=== PATIENT | female | born 1980 | race Caucasian/White ===

== ENCOUNTER 2016-08-21 23:30 | Observation (INO) | payer MEDICARE, MEDICAID ==
[~2016-08-21] VITALS: Ht 176.5 cm; Wt 127.6 kg
[2016-08-21 23:34] VITALS: BP 160/88; PULSE 72; RESP 18; O2SAT 99
[2016-08-21 23:58] LABS: BASOPHILS % (AUTO) 0.4 % (0-3); EOSINOPHILS % (AUTO) 1.7 % (0-5); MONOCYTES % (AUTO) 5.9 % (4-12); Mean Corpuscular Hemoglobin 25.8 pg (27.0-35.0); Mean Corpuscular Volume 81.1 fL (81-100); NEUTROPHILS % (AUTO) 74.7 % (40-74); Platelet Count 298 bil/L (150-400)
[2016-08-22] VITALS (12 sets, daily range): BP systolic 103–139; BP diastolic 66–91; PULSE 74–92; RESP 15–24; O2SAT 94–99
[2016-08-22 00:18] LABS: Magnesium 2.1 mg/dL (1.6-2.6)
--- NOTE | 2016-08-22 01:20 | ED.REPORT ---
HPI-Abd Pain F Under 38 Date of Service Aug 22, 2016 ED Provider: Dr. Dhruv Riley D.O. A healthy 36 year old female presents to the ED with right-sided abdominal pain onset 2100 this evening. She also reports right-sided back pain, chills, nausea , and vomiting. The patient denies diarrhea or hematuria. She has had two previous episodes of similar pain, although less severe. Six weeks ago the patient had a negative gallbladder scan. Nursing Notes Stated Complaint: ABDOMINAL PAIN Chief Complaint: Female Abdominal Pain Nursing Notes Reviewed: Yes Allergies: Coded Allergies: No Known Allergies (Unverified , 08/21/16) Scheduled Dextroamphetamine/Amphetamine ER (Adderall XR) 20 Mg Capsule 20 MG PO DAILY Fluoxetine (Fluoxetine) 40 Mg Capsule 40 MG PO DAILY Metformin (Metformin) 500 Mg Tablet 500 MG PO DAILY Miscellaneous Medications ([ control]) General Time Seen by MD: 01:20 Chief Complaint Abdominal pain Hx Obtained From: Patient Arrived By: Walk-in Sudden in Onset?: No Onset Occurred: 5 - 8 hours ago Symptom Duration: Since onset Location: : Back (Right): RUQ Quality: Painful Severity: Current: Moderate Severity: Maximum: Moderate Associated with: Reports: Diarrhea, Nausea, Vomiting, Denies: Fever Pertinent Negative: Relieved by nothing Recent Healthcare: Recent doctor visit Similar Sx Previous: Yes Past Medical History Past Medical History None reported Past Surgical History None reported Smoking History Unknown if Ever Smoker Social History Other Social History: Good social support Ambulatory Status Independent Review of Systems Constitutional: Reports: Chills GI: Reports: Abdominal pain (Right-sided), Nausea, Vomiting, Denies: Diarrhea Female: Denies: Hematuria Musculoskeletal: Reports: Back pain (Right-sided) Complete sys rev & neg: except as marked. Physical Exam Initial Vital Signs Vital Signs (First) Date Time Temp Pulse Resp B/P Pulse Ox O2 Delivery O2 Flow Rate FiO2 08/21/16 23:34 36.0 72 18 160/88 99 Room Air Initial VS: Reviewed Head / Eyes: Atraumatic, Normocephalic ENT: Conjunctiva normal, No scleral icterus Skin: Warm, Dry, No cyanosis Neurologic: Alert, Oriented, Nonfocal Psychiatric: Mood/affect normal, Behavior normal, Normal thought content General/Constitutional: Awake, Alert Distress / Hydration: Positive: Distress moderate Behavior: Positive: Hyperventilating Respiratory / Chest: Breath sounds NL, Breath sounds = bilat, No respiratory distress Cardiovascular: Heart rate NL, Regular rhythm, Heart sounds NL Abdomen: Soft Tenderness/Guarding/Rebound: Positive: Tender RUQ... Interpretation & Diagnostics Lab Results Interpretation Result Diagram: 08/21/16 2347 08/21/16 2347 Test 08/21/16 23:47 08/22/16 02:30 White Blood Count 13.5th/mm3 (3.8-10.1) Red Blood Count 4.65mil/mm3 (3.90-5.20) Hemoglobin 12.0g/dL (12.0-15.6) Hematocrit 37.7% (35.0-46.0) Mean Corpuscular Volume 81.1fL (81-100) Mean Corpuscular Hemoglobin 25.8pg (27.0-35.0) Mean Corpuscular Hemoglobin Concent 31.8% (32.0-37.0) Red Cell Distribution Width 14.8% (12.3-15.4) Platelet Count 298bil/L (150-400) Neutrophils (%) (Auto) 74.7% (40-74) Lymphocytes (%) (Auto) 17.1% (14-46) Monocytes (%) (Auto) 5.9% (4-12) Eosinophils (%) (Auto) 1.7% (0-5) Basophils (%) (Auto) 0.4% (0-3) Sodium Level 139mEq/L (134-144) Potassium Level 4.3mEq/L (3.5-5.2) Chloride Level 102mEq/L (97-108) Carbon Dioxide Level 24mmol/L (18-29) Blood Urea Nitrogen 15mg/dL (6-20) Creatinine 0.86mg/dL (0.57-1.00) Estimat Glomerular Filtration Rate 106mL/min (>59) Glucose Level 113mg/dL (60-99) Calcium Level 9.1mg/dL (8.5-10.1) Magnesium Level 2.1mg/dL (1.6-2.6) Total Bilirubin 0.3mg/dL (0.0-1.2) Aspartate Amino Transf (AST/SGOT) 14U/L (0-50) Alanine Aminotransferase (ALT/SGPT) 8U/L (0-32) Alkaline Phosphatase 67U/L (25-150) Total Protein 7.2g/dL (6.4-8.4) Albumin 3.8g/dL (3.4-5.0) Lipase 31U/L (13-60) HCG Beta Subunit < 0.500mIU/mL Hold Elam Top Tube Received (Received) Urine Color Yellow (YELLOW) Urine Appearance Hazy (CLEAR,HAZY) Urine pH 7.0 (5.0-8.0) Urine Specific [place] 1.020 (1.003-1.035) Urine Protein Negativemg/dL (NEG,TRACE) Urine Glucose (UA) Negativemg/dL (NEGATIVE) Urine Ketones Negativemg/dL (NEGATIVE) Urine Occult Blood Moderate (NEGATIVE) Urine Nitrite Negative (NEGATIVE) Urine Bilirubin Negative (NEGATIVE) Urine Urobilinogen Normalmg/dL (NORMAL) Urine Leukocyte Esterase Trace (NEGATIVE) Urine RBC 3-10/hpf (0-2) Urine WBC 11-50/hpf (0-5) Urine Epithelial Cells Moderate/hpf (NONE-MOD) Urine Crystals None seen (NONE SEEN) Urine Bacteria Moderate/hpf (NONE-FEW) Urine Hyaline Casts None/lpf (NONE) Urine Granular Casts None seen (NONE SEEN) Urine Waxy Casts None seen (NONE SEEN) Urine Red Blood Cell Casts None seen (NONE SEEN) Urine White Blood Cell Casts None seen (NONE SEEN) Urine Mucus Present (None Seen) Urine Trichomonas None seen (NONE SEEN) Urine Yeast None (NONE SEEN) Urinalysis Comment Transitional epi Urine Culture Reflexed Indicated ECG Interpretation ECG Interpretation: Sinus rhythm rate 71 Time: 23:44 Interpreted by: ED physician CT Abd / Pelvis Interpretation CONCLUSION: Mild uncomplicated diverticulitis could be present as described above. Fibroid uterus suggested an adnexal cyst/cysts as described, ultrasound could further evaluate. Cholelithiasis is noted. Ultrasound could further evaluate. Transmitted to ED by Jerome Boyce D.O. at 08/22/2016 - 3:07:10 AM [facility] Study type: Abdominal CT IV contrast Interpretation / Wet Read by: Interpret - Radiologist Re-Eval/Medical Decision Med Decision/Clinical Course Maria Del Rosario may be developing diverticulitis or early acute cholecystitis. Either way she needs to be admitted for IV antibiotics and IV fluids and IV pain control. She probably needs an ultrasound however were going to treat her empirically with antibiotics and I think the ultrasound can wait until the morning. I consulted with our hospitalist who graciously agreed to admit tonight and procure the remainder of the diagnostics and obtain surgical consultation if indicated. Re-Evaluation/Progress : Time of Eval: 03:21 Patient Status: Condition improved Re-Evaluation/Progress Note: Discussed with patient CT and lab results, diagnosis, and plan for admit. Patient agrees with plan for care and all questions were addressed. Consultation : Referral / Consult Name: Gary Huertas MD Consulted With: Hospitalist Call Returned at: 03:38 Auto Damage Adjuster: Agrees with eval, Agrees with plan, Accepts admit Counseled Regarding: Diagnosis, Lab results, Need for admission Discharge & Departure Shift Change Sign-Out Response to Therapy: Improved Primary Impression: Diverticulitis Diverticulitis site: large intestine Diverticulitis bleeding: without bleeding Diverticulitis complication: without perforation or abscess Qualified Code: K57.32 - Diverticulitis of large intestine without perforation or abscess without bleeding Additional Impressions: Gallstones Abdominal pain Abdominal location: right upper quadrant Qualified Code: R10.11 - Right upper quadrant pain Leukocytosis Leukocytosis type: unspecified Qualified Code: D72.829 - Elevated white blood cell count, unspecified Disposition: ADMITTED TO HOSPITAL Discharge Condition All VS Reviewed: Yes Condition: Stable Referrals: Beverly Waters (PCP) Ivet Attestation Portions of this note were transcribed by Digna Matos. I, Dr. Riley, personally performed the history, physical exam, and medical decision-making; I reviewed and confirmed the accuracy of the information in the transcribed note. Signed by: Ivet Cohn, 08/22/2016, 03:45 copies to: Beverly Waters Todd P DO Aug 22, 2016 01:20 DIGNA MATOS Aug 22, 2016 01:44
[2016-08-22] MEDS ORDERED: Ondansetron 2 mg/mL 2 mL Inj IVPUSH PRN ×4 (01:45→16:05)
[2016-08-22] MEDS: HYDROmorphone 0.5 mg/0.5 mL iSecure Syringe IVPUSH PRN ×2 (02:43→03:48)
[2016-08-22] MEDS ORDERED: Piperacillin-Tazo 3.375 Gm Inj 3.375 GM in Dextrose 5% Minibag Plus 50 ML IV ONE (03:20)
[2016-08-22] MEDS ORDERED: Alum-Mag Hydrox-Simeth 30 mL Suspension PO PRN (03:40)
[2016-08-22] MEDS ORDERED: Polyethylene Glycol (PEG) 17 Gm Powder PO PRN (03:40)
[2016-08-22 03:52] LABS: APPEARANCE,URINE HAZY (CLEAR,HAZY); COLOR,URINE YELLOW (YELLOW); OCCULT BLOOD,URINE MODERATE (NEGATIVE)
[2016-08-22 03:53] LABS: UROBILINOGEN,URINE NORMAL (NORMAL)
[2016-08-22] MEDS: 0.9% Sodium Chloride 1,000 ML IV SCH ×3 (03:57→23:40)
[2016-08-22] MEDS ORDERED: HYDROmorphone 1 mg/mL Inj IVPUSH ONE (04:00)
--- NOTE | 2016-08-22 05:06 | PCM.HPMED ---
Subjective Date of Service Aug 22, 2016 Primary Provider: Admitting Physician: Primary Care Physician: Beverly Waters Attending Physician: Chief Complaint: Abdominal pain History of Present Illness: Maria Del Rosario Kemp is a 36 year old female with no known medical problems who presents to [facility] emergency department with right-sided abdominal pain at 2100 this evening. She also reports right-sided back pain, severe, sharp pain 9/10 intensity, radiation from the right side to mid epigastric area. Associated symptoms includes chills, nausea, and multiple vomiting (no hematemesis). The patient denies diarrhea or hematuria. The patient has had two previous episodes of similar pain, although less severe. Patient had a negative HIDA scan on 07/03/16. Family reported the patient had similar mild symptoms around this time but nothing was found to be the cause. No prior abdominal surgery and no history of obstructions Case discussed with Dr Riley, plan to admit and initiate antibiotics. Review of Systems: Pertinent positives as noted in HPI. All other systems were reviewed and are negative Allergies Coded Allergies: No Known Allergies (Unverified , 08/21/16) Home Medications Not yet consolidated PMH Asperger Polycystic Ovarian Syndrome on Metformin Obesity Surgical History Tonsillectomy Family History Both parents healthy Mother side has issues with diverticulosis Social History Hx Alcohol Use: No Hx Substance Use: No Hx Tobacco Use: No Living Arrangement: with Family Exam Vital Signs Vital Sign - Last Date Time Temp Pulse Resp B/P Pulse Ox O2 Delivery O2 Flow Rate FiO2 08/22/16 02:56 36.5 88 118/76 99 08/21/16 23:34 18 Room Air Exam General: Alert, Oriented X3, Cooperative, No acute Distress Eyes: PERRLA, Scleral Anicteric Mouth: Mouth Normal, Mucous Membranes Moist/[place] Neck: Supple, no Thyromegaly, trachea central. Chest & Lungs: Clear to auscultation & percussion, No adventitious breath sounds, no crackles, no wheeze Cardiovascular: Normal S1, Normal S2, No Murmurs/Rubs/Gallops, Regular Rate/ Rhythm, (No JVD, no peripheral edema) Pulses: Radial (present and equal), Dorsalis Pedi (present and equal) Abdomen: Soft, right upper quadrant tenderness, Non-distended, Normoactive bowel tones. Musculoskeletal: Unremarkable. Normal range of motion, no swollen or erythematous joints Extremities: No edema, no cyanosis, no clubbing. Skin: No rashes. Warm and dry, no erythematous areas Neurological: Grossly neurologically intact, Normal Speech, Sensation Intact Lymphatic: Lymph nodes Cervical and Axillary not palpable. Lab and Diagnostics Labs Laboratory Tests Test 08/21/16 23:47 08/22/16 02:30 White Blood Count 13.5th/mm3 (3.8-10.1) Red Blood Count 4.65mil/mm3 (3.90-5.20) Hemoglobin 12.0g/dL (12.0-15.6) Hematocrit 37.7% (35.0-46.0) Mean Corpuscular Volume 81.1fL (81-100) Mean Corpuscular Hemoglobin 25.8pg (27.0-35.0) Mean Corpuscular Hemoglobin Concent 31.8% (32.0-37.0) Red Cell Distribution Width 14.8% (12.3-15.4) Platelet Count 298bil/L (150-400) Neutrophils (%) (Auto) 74.7% (40-74) Lymphocytes (%) (Auto) 17.1% (14-46) Monocytes (%) (Auto) 5.9% (4-12) Eosinophils (%) (Auto) 1.7% (0-5) Basophils (%) (Auto) 0.4% (0-3) Sodium Level 139mEq/L (134-144) Potassium Level 4.3mEq/L (3.5-5.2) Chloride Level 102mEq/L (97-108) Carbon Dioxide Level 24mmol/L (18-29) Blood Urea Nitrogen 15mg/dL (6-20) Creatinine 0.86mg/dL (0.57-1.00) Estimat Glomerular Filtration Rate 106mL/min (>59) Glucose Level 113mg/dL (60-99) Calcium Level 9.1mg/dL (8.5-10.1) Magnesium Level 2.1mg/dL (1.6-2.6) Total Bilirubin 0.3mg/dL (0.0-1.2) Aspartate Amino Transf (AST/SGOT) 14U/L (0-50) Alanine Aminotransferase (ALT/SGPT) 8U/L (0-32) Alkaline Phosphatase 67U/L (25-150) Total Protein 7.2g/dL (6.4-8.4) Albumin 3.8g/dL (3.4-5.0) Lipase 31U/L (13-60) HCG Beta Subunit < 0.500mIU/mL Hold Elam Top Tube Received (Received) Result Diagram: 08/21/167 08/21/162346 X-Rays, CTs and MRIs CT Abd / Pelvis Interpretation CONCLUSION: Mild uncomplicated diverticulitis could be present as described above. Fibroid uterus suggested an adnexal cyst/cysts as described, ultrasound could further evaluate. Cholelithiasis is noted. Ultrasound could further evaluate. Transmitted to ED by Jerome Boyce D.O. at 08/22/2016 - 3:07:10 AM PST Assessment & Plan Maria Del Rosario Kemp is a 36 year old female with no known medical problems who presents to [facility] emergency department with right-sided abdominal pain 1. Acute right sided Abdominal pain. Present on admission Differential diagnosis includes Cholelithiasis, Cholecystitis, Appendicitis, Budd Chiari syndrome, Pyelonephritis, Intestinal ischemia. CT scan has limited the diagnosis to Diverticulitis (which is rare for her age) and Cholelithiasis. Pyelonephritis is also a possible diagnosis based on flank pain with Urinary tract infection. Liver function test completely normal. Lipase is also normal with normal pancreas on imaging, basically rules out acute pancreatitis - empiric antibiotics with Zosyn IV - Blood cultures x 2, Urine culture - nothing by mouth with IV fluids running - ultrasound ordered, consider HIDA scan as next step - consider Surgical and or Gastroenterology consultation - also consider a gynecological evaluation if none of the diagnosis are ruled out 2. Leukocytosis. Present on admission Not meeting SIRS criteria but likely represents a infectious process. - monitor with repeat labs 3. Obesity BMI 39.5 will discuss weight lost and lifestyle modifications with dieting and exercise 4. Polycystic Ovarian syndrome - holding Metformin for now, due to recent contrast exposure - Acetaminophen as needed for mild pain/fever/headache - Bowel regimen as needed -Antiemetic as needed Patient admitted under inpatient status with expected length of stay > 2 midnights for severity of present symptoms, complexities of treatment plan and risk for adverse event . Resuscitation Status: CPR: Attempt Resuscitation Gary Huertas MD Aug 22, 2016 03:40
[2016-08-22] MEDS ORDERED: AMPH20CA5 PO (06:42)
[2016-08-22] MEDS ORDERED: birth control (06:42)
[2016-08-22] MEDS ORDERED: FLUO40CA PO (06:42)
[2016-08-22] MEDS ORDERED: METF500T4 PO (06:42)
[2016-08-22] MEDS: Piperacillin-Tazo 3.375 Gm Inj 3.375 GM in Dextrose 5% Minibag Plus 50 ML IV SCH ×3 (09:23→23:41)
--- NOTE | 2016-08-22 10:00 | NUR ---
Pain Pt had severe abdominal pain first thing this am, no pain meds ordered, contacted MD. received order for Toradol, administered, pt pain went down to 1/10 unless pressure placed on abdomen.
--- NOTE | 2016-08-22 10:12 | DRSVH ---
PROCEDURE: US ABDOMEN, LIMITED ([id number]) INDICATIONS: abd pain TECHNIQUE: Real-time focused scanning was performed of the abdomen, with image documentation. COMPARISON: [facility], CT, CT ABD PELVIS W CON, 08/22/2016, 2:41. FINDINGS: Limited exam demonstrates multiple gallstones as well as edematous and thickened gallbladde r wall measuring up to 7 mm. Small amount pericholecystic fluid. Positive sonographic Chopra sign. IMPRESSION: Cholelithiasis with thickened, edematous gallbladder wall suggesting developing cholecyst itis. Correlate clinically. Mary Griffin RN given results by the novelty candy maker at 0845 hrs. 08/22/2016. Dictated by: Anton ABRAMS Interpreted: Дмитрий Hernandez MD on 08/22/2016 at 10:09 Transcribed by: YANIRA on 08/22/2016 at 10:11 Approved by: Nathan Hernandez M.D. on 08/22/2016 at 14:14
--- NOTE | 2016-08-22 11:25 | DRSVH ---
PROCEDURE: CT ABDOMEN AND PELVIS WITH CONTRAST ([id number]) INDICATIONS: RUQ pain, -recent hidda scan, elevated wbc count TECHNIQUE: After the administration of intravenous contrast, 5 mm thick sections acquired from the diaphragm to the symphysis. 5 mm coronal and sagittal reformats were acquired. For radiation dose reduction, the following was used: automated exposure control, adjustment of mA and/or kV according to patient siz e. COMPARISON: [facility], US, PELVIS SONO TRANSVAGINAL ([facility]), 02/10/2013, 14:41. FINDINGS: Image quality: Excellent. ABDOMEN: Lung bases: Lung bases are clear. Heart size is normal. Solid organs: Liver and spleen are normal in size and enhancement. Gallbladder dependent layering p artially calcified gallstones are present within the gallbladder lumen. Biliary system is non dilate d. Pancreas enhances normally. No adrenal nodules. Kidneys demonstrate normal size and enhancement , without hydronephrosis. Peritoneum and bowel: Bowel loops demonstrate normal wall thickness and caliber. No free fluid or a ir. Nodes and vessels: No retroperitoneal or mesenteric adenopathy by size criteria. Aorta and inferior vena cava are normal in size. Miscellaneous: No ventral hernias. PELVIS: Genitourinary: Bladder wall thickness is normal. Right adnexal cyst measuring up to 3.2 x 2.9 x 3.0 cm. Prior evaluation of the uterus by ultrasound in January of 2013 had shown only 2 intramural fibroi ds measuring up to 1.3 cm in maximal dimension. The uterus is now enlarged, heterogeneous in its radha earance, and lobulated in its contour to the degree that most likely multiple fibroids have developed . Miscellaneous: No inguinal hernias or adenopathy. At the left lower quadrant diverticulosis is pres ent and there appears to be slight stranding in the adjacent pericolonic fat, but this may represent scarring from prior diverticulitis rather than new diverticulitis, and the clinical history provided indicates right upper quadrant rather than left lower quadrant pain as the presenting symptom. What appears to be a normal appendix can be seen at the right lower quadrant posterior to the cecum. Bones: No suspicious bony lesions. No vertebral body compression fractures. IMPRESSION: 1. The appearance of the uterus has significantly changed from 2012, now with heterogeneous enhancem ent, enlargement, and lobulated contours. Statistically this is most likely a manifestation of inter matt development of multiple moderately large fibroids but ultrasound assessment is recommended to fur ther assess this significant interval change. 2. Sigmoid and descending colonic diverticulosis but without definite acute diverticulitis. As note d, there is slight stranding in the adjacent pericolonic fat but the clinical history provided is of right upper quadrant pain rather than left lower quadrant pain. 3. Dependent layering partially calcified gallstones within the gallbladder lumen, but no sign of ac [place] inflammation involving the gallbladder or development of biliary distention. 4. There is a right adnexal cyst measuring up to 3.2 x 2.9 x 3.0 cm which can be further characteriz ed during anticipated pelvic ultrasound. Note: These findings are concordant with the preliminary interpretation. Dictated by: Nicanor Gibbnos M.D. on 08/22/2016 at 11:12 Approved by: Nicanor Gibbons M.D. on 08/22/2016 at 11:23
--- NOTE | 2016-08-22 12:21 | CONS ---
[address] [address] CONSULTATION REPORT PATIENT: ABHISHEK ARREDONDO : 1980 MR#: [id number] ADMIT: 08/22/2016 JOB ID: [id number] DATE OF SERVICE: 08/22/2016 CHIEF COMPLAINT: Cholecystitis. HISTORY OF PRESENT ILLNESS: The patient is a 36-year-old female, who was admitted overnight by the hospitalist service due to abdominal pain. I was consulted by the hospitalist today for evaluation. The patient reports that this is her third attack of this sort of pain. It is mainly in the right upper quadrant and radiates to her back. She had an attack in June of 2016 and she did see her PCP at [facility] and the patient had a normal HIDA scan. However, around 9 p.m. last night, she had another episode of this right upper quadrant pain that goes around to her back. She had nausea and vomiting many times and she had some chills and was hyperventilating. There is no diarrhea. This prompted a visit to the emergency department which ordered an abdominal CT scan and then this morning patient had an abdominal ultrasound. The abdominal ultrasound demonstrated a thickened gallbladder wall and cholelithiasis consistent with cholecystitis. It is interesting that a CT scan last night only showed calcified gallstones but no signs of cholecystitis. Patient's sister had cholecystectomy. PAST MEDICAL HISTORY: 1. Asperger syndrome. 2. Polycystic ovarian syndrome. 3. Tonsillectomy. MEDICATIONS: Are Adderall, fluoxetine, metformin. ALLERGIES: None. SOCIAL HISTORY: The patient lives in [place]. She is single. She does not have any children. She does not smoke. FAMILY HISTORY: Positive for cholecystectomy in her sister. REVIEW OF SYSTEMS: Positive for the right upper quadrant pain, nausea, vomiting and chills. All other systems reviewed are negative. PHYSICAL EXAMINATION: The patient is currently in the hospital bed in no acute distress. Her mother is in the room. Her BMI is 40.9. Head is normocephalic, atraumatic. There is no scleral icterus. Neck is supple. Heart is regular rate. Lungs are clear. Abdomen is slightly obese. It is soft on the left side but on palpation there is mild tenderness in the epigastric region and [id number] tenderness in the right subcostal region with deep inspiration. Extremities show no clubbing and no cyanosis. Neurologically, patient is awake and alert and answers appropriately. LABORATORY EXAMINATION: Last night showed a white blood count of 13.5, hematocrit 37.7, platelet count is 298. Sodium was 139, potassium 4.3, creatinine 0.86, total bilirubin 0.3, lipase of 31. ASSESSMENT: This is a 36-year-old female with acute cholecystitis. The patient's BMI is 40.9. The patient will be started on IV antibiotics and we will proceed to laparoscopic cholecystectomy, possible open, today. The risks of the operation were explained to the patient and her mother and they both understand and wish to proceed.
[2016-08-22 12:46] LABS: INR 0.9 ratio
--- NOTE | 2016-08-22 13:05 | NUR ---
Pain P: Patient had abdominal pain. 12/30 Intervention: Patient was given Toradol per primary RN Evaluation: Pain was relieved to 0/10
[2016-08-22] MEDS ORDERED: Lactated Ringer's 500 ML IV PRN (15:13)
[2016-08-22] MEDS ORDERED: Lactated Ringer's 1,000 ML IV SCH (15:13)
--- NOTE | 2016-08-22 15:13 | PCM.HPANE ---
Patient Data Surgeon Admitting Provider:Gary Huertas MD Attending Provider:Gary Huertas MD Primary Care Physician:Beverly Waters Other Provider: Reason for Visit Diverticulitis Gallstones Abdominal Pain Ht/WT & BMI Height (Feet): 5 Height (Inches): 9.50 Weight (Kilograms): 127.600 Body Mass Index 40.73 Allergies Coded Allergies: No Known Allergies (Unverified , 08/21/16) Medications Reported Medications [ control] No Conflict Check 08/22/16 Fluoxetine 40 Mg [id number] Mg PO DAILY Ref 2 08/22/16 Metformin 500 Mg [id number] Mg PO DAILY Ref 0 08/22/16 Dextroamphetamine/Amphetamine ER (Adderall XR)20 Mg [id number] Mg PO DAILY Ref 2 08/22/16 History History of ENT Problems?: Yes HEENT History: Denies:: Cataracts Dysphagia Glaucoma Sinus Problem Hx of Heart Problems?: No Cardiovascular History: Denies:: Congestive Heart Failure Hypertension Other Cardiac History: Denies CP Hx of Respiratory Problem?: No Respiratory History: Denies:: Tuberculosis Hx Neurologic Problems?: No Neurological History: Positive for:: Headaches Other Neurological Pertinent: PCOS Hx of GI Problems?: Yes Gastrointestinal History: Positive for:: Diverticulitis Genitourinary History: Positive for:: Kidney Stones Urinary Tract Infection Female Hx: Denies:: Currently Hx Musculoskeletal Problems?: No Hx Surgeries?: No History Blood Transfusions: Positive for:: Accept Blood Products? Denies:: Blood Transfusions Hx Alcohol Use: NoHx Substance Use: NoHave You Smoked inLast 12 mo: No Stop/Bang Treated for Sleep Apnea?: No Do You Have a CPAP Machine?: No S-Snoring: Do You Snore Loudly: Yes T-Tired: feel tired, fatigued: Yes O-Obsered: Observed not breath: No P-Blood Pressure: treated: No B- Body Mass Index > 35 kg/m2: Yes A- Age over 50: No N- Neck Large Circumference: No G- Gender Male: No WEST Total Score: 4 Risk Assessment Category Category 1A: Patient has history of documented sleep apnea, and HAS NOT received any narcotic, sedative or anesthesia administration during this stay. Category 1B: Patient has history of documented sleep apnea, and HAS received any narcotic , sedative or anesthesia administration during this stay Category 2: Patient has SUSPECTED Obstructive Sleep Apnea, and HAS received any narcotic , sedative or anesthesia administration during this stay. Category 3: Patient has SUSPECTED Obstructive Sleep Apnea and HAS NOT received narcotic, sedative or anesthesia administration during this stay. Category 4: Outpatient in Procedural Areas with known sleep apnea or who screen positive for High Risk via the STOP/BANG questionnaire. Exam Exam Vital Signs Vital Signs Date Time Temp Pulse Resp B/P Pulse Ox O2 Delivery O2 Flow Rate FiO2 08/22/16 12:41 36.9 75 18 112/74 98 Room Air 08/22/16 09:08 37.0 74 18 103/66 97 General Appearance: Alert, Oriented X3, Cooperative, Mild Distress HEENT/AIRWAY: MP 2, Neck Movement (FROM), Mouth Opening (3 FBMO) Lungs: Clear to Auscultation, Normal Air Movement Heart: Exam Unremarkable, Regular Rate/Rhythm, No Murmurs/Rubs/Gallops Meds/Labs/Diagnostics Admission Meds Current Medications Piperacillin Sod/ Tazobactam Sod 3.375 gm/Dextrose/ Water 50 ml @ 100 mls/hr ONCE ONCE IV Last administered on 08/22/16 03:59; Start 08/22/16 at 03:20; Stop 08/22/16 at 03:49; Status DC Sodium Chloride (Normal Saline) 1,000 ml @ 100 mls/hr Q10H IV Last administered on 08/22/16 09:21; Start 08/22/16 at 03:36 Hydromorphone HCl 1 mg 1 mg ONCE ONCE IVPUSH Last administered on 08/22/16 04 :10; Start 08/22/16 at 04:00; Stop 08/22/16 at 04:01; Status DC Piperacillin Sod/ Tazobactam Sod/ Dextrose/Water (Zosyn 3.375 Gm Inj/D5W Minibag Plus) 50 ml @ 12.5 mls/hr Q8 IV Last administered on 08/22/16 09:23; Start 08/22/16 at 08:30 Labs Test 08/21/16 23:47 08/22/16 02:30 08/22/16 11:54 White Blood Count 13.5th/mm3 (3.8-10.1) Red Blood Count 4.65mil/mm3 (3.90-5.20) Hemoglobin 12.0g/dL (12.0-15.6) Hematocrit 37.7% (35.0-46.0) Mean Corpuscular Volume 81.1fL (81-100) Mean Corpuscular Hemoglobin 25.8pg (27.0-35.0) Mean Corpuscular Hemoglobin Concent 31.8% (32.0-37.0) Red Cell Distribution Width 14.8% (12.3-15.4) Platelet Count 298bil/L (150-400) Neutrophils (%) (Auto) 74.7% (40-74) Lymphocytes (%) (Auto) 17.1% (14-46) Monocytes (%) (Auto) 5.9% (4-12) Eosinophils (%) (Auto) 1.7% (0-5) Basophils (%) (Auto) 0.4% (0-3) Sodium Level 139mEq/L (134-144) Potassium Level 4.3mEq/L (3.5-5.2) Chloride Level 102mEq/L (97-108) Carbon Dioxide Level 24mmol/L (18-29) Blood Urea Nitrogen 15mg/dL (6-20) Creatinine 0.86mg/dL (0.57-1.00) Estimat Glomerular Filtration Rate 106mL/min (>59) Glucose Level 113mg/dL (60-99) Calcium Level 9.1mg/dL (8.5-10.1) Magnesium Level 2.1mg/dL (1.6-2.6) Total Bilirubin 0.3mg/dL (0.0-1.2) Aspartate Amino Transf (AST/SGOT) 14U/L (0-50) Alanine Aminotransferase (ALT/SGPT) 8U/L (0-32) Alkaline Phosphatase 67U/L (25-150) Total Protein 7.2g/dL (6.4-8.4) Albumin 3.8g/dL (3.4-5.0) Lipase 31U/L (13-60) HCG Beta Subunit < 0.500mIU/mL Hold Elam Top Tube Received (Received) Urine Color Yellow (YELLOW) Urine Appearance Hazy (CLEAR,HAZY) Urine pH 7.0 (5.0-8.0) Urine Specific Ulen 1.020 (1.003-1.035) Urine Protein Negativemg/dL (NEG,TRACE) Urine Glucose (UA) Negativemg/dL (NEGATIVE) Urine Ketones Negativemg/dL (NEGATIVE) Urine Occult Blood Moderate (NEGATIVE) Urine Nitrite Negative (NEGATIVE) Urine Bilirubin Negative (NEGATIVE) Urine Urobilinogen Normalmg/dL (NORMAL) Urine Leukocyte Esterase Trace (NEGATIVE) Urine RBC 3-10/hpf (0-2) Urine WBC 11-50/hpf (0-5) Urine Epithelial Cells Moderate/hpf (NONE-MOD) Urine Crystals None seen (NONE SEEN) Urine Bacteria Moderate/hpf (NONE-FEW) Urine Hyaline Casts None/lpf (NONE) Urine Granular Casts None seen (NONE SEEN) Urine Waxy Casts None seen (NONE SEEN) Urine Red Blood Cell Casts None seen (NONE SEEN) Urine White Blood Cell Casts None seen (NONE SEEN) Urine Mucus Present (None Seen) Urine Trichomonas None seen (NONE SEEN) Urine Yeast None (NONE SEEN) Urinalysis Comment Transitional epi Urine Culture Reflexed Indicated Prothrombin Time 9.6sec (8.1-12.5) Prothromb Time International Ratio 0.90ratio Plan Impression Patient chart reviewed, patient interviewed and anesthestic plan with risks, benefits, and alternatives discussed, and informed consent obtained. NPO Status: > 8 hrs ASA Physical Status: ASA3 Severe Disease (BMI 40) Anesthetic Plan: GA Bene/Risks/Altern/Consents: Yes HP Complete Prior to Induction: Yes Taqueria Patel MD Aug 22, 2016 14:49
[2016-08-22] MEDS ORDERED: HYDROmorphone 1 mg/mL Inj IVPUSH PRN (15:15)
[2016-08-22] MEDS ORDERED: MetoCLOpramide 5 mg/mL 2 mL Inj IVPUSH PRN (15:15)
[2016-08-22] MEDS ORDERED: Labetalol 5 mg/mL 4 mL Inj IV PRN (15:15)
[2016-08-22] MEDS ORDERED: EPHEDrine Sulfate 50 mg/mL Inj IVPUSH PRN (15:15)
[2016-08-22] MEDS ORDERED: Phenylephrine 10,000 mCg/mL Inj IVPUSH PRN (15:15)
[2016-08-22] MEDS ORDERED: Atropine 0.4 mg/mL Inj IVPUSH PRN (15:15)
[2016-08-22] MEDS ORDERED: fentaNYL-PF 50 mCg/mL 2 mL Inj IVPUSH PRN (15:15)
[2016-08-22] MEDS ORDERED: hydrALAZINE 20 mg/mL Inj IVPUSH PRN (15:15)
[2016-08-22] MEDS ORDERED: Bupivacaine-MPF 0.5% W/EPI 30 mL Inj INFILTRATE ONE (15:18)
--- NOTE | 2016-08-22 16:01 | DRSVH ---
PROCEDURE: X-RAY OPERATIVE CHOLANGIOGRAM ([id number]) INDICATIONS: CHOLECYSTITIS COMPARISON: None. FINDINGS: Biliary ducts: The surgeon injected contrast into the biliary ducts after cannulation of the cystic duct stump. Visualized intra- and extrahepatic bile ducts are normal in caliber, without strictures. 2 small rounded filling defects seen within the distal common bile duct proximal to the ampulla. N o evidence for iatrogenic ductal injury. Duodenum: Contrast flows promptly through the sphincter of Oddi into the duodenum, which appears nor mal in caliber. IMPRESSION: Filling defects seen within the distal common bile duct and retained stones or tumefactiv e sludge balls cannot be excluded. Recommend correlation with real-time examination. Dictated by: Anton ABRAMS Interpreted: Дмитрий Hernandez MD on 08/22/2016 at 16:00 Transcribed by: YANIRA on 08/22/2016 at 16:01 Approved by: Nathan Hernandez M.D. on 08/22/2016 at 17:02
[2016-08-22] MEDS ORDERED: HYDROmorphone 0.5 mg/0.5 mL iSecure Syringe IVPUSH PRN (16:05)
[2016-08-22] MEDS ORDERED: Propofol 10,000 mCg/mL 20 mL Inj ONE (16:10)
[2016-08-22] MEDS ORDERED: Rocuronium 10 mg/mL 5 mL Inj ONE (16:10)
[2016-08-22] MEDS ORDERED: Dexamethasone 4 mg/mL Inj ONE (16:10)
[2016-08-22] MEDS ORDERED: Glycopyrrolate 0.2 mg/mL 5 mL Inj ONE (16:10)
[2016-08-22] MEDS ORDERED: MetoCLOpramide 5 mg/mL 2 mL Inj ONE (16:10)
[2016-08-22] MEDS ORDERED: Succinylcholine Chloride 20 mg/mL 5 mL Inj ONE (16:10)
[2016-08-22] MEDS ORDERED: Neostigmine 1 mg/mL 5 mL Inj ONE (16:10)
[2016-08-22] MEDS ORDERED: Ondansetron 2 mg/mL 2 mL Inj ONE (16:10)
--- NOTE | 2016-08-22 16:34 | OP ---
[address] [address] OPERATIVE REPORT PATIENT: ABHISHEK ARREDONDO : 1980 MR#: [id number] ADMIT: 08/22/2016 JOB ID: [id number] DATE OF SURGERY: 08/22/2016 SURGEON: Danie Burrell MD. HAND BENDER: Hudson Javier PA-C. ANESTHESIA: General. PREOPERATIVE DIAGNOSIS(ES): Acute cholecystitis. POSTOPERATIVE DIAGNOSIS(ES): Acute cholecystitis. PRINCIPAL PROCEDURE: Laparoscopic cholecystectomy with intraoperative cholangiogram. INDICATION FOR PROCEDURE: The patient is a 36-year-old morbidly obese female with acute cholecystitis. PRINCIPAL FINDING: Assistance from a surgical P.A. in this morbidly obese female was critical in helping with completion of the case. Successful laparoscopic cholecystectomy. The intraoperative cholangiogram was normal. PROCEDURE COURSE: The patient was brought to the operating table and was provided with general anesthesia. The patient had received IV antibiotics and she was given SCDs. A time-out was performed. The patient's abdomen was then prepped and draped in the usual sterile fashion. Next, local anesthetic was injected into the infraumbilical location and a 5 mm stab incision was made. A Veress needle was used to establish pneumoperitoneum. A 5 mm trocar was then placed and the laparoscope was then introduced. A 12 mm trocar was then placed in the subxiphoid location and two additional 5 mm trocars were then placed in the right lateral abdomen. The gallbladder was taut and distended and it was able to be grasped and retracted cephalad. There was a lot of mucosal edema of the gallbladder which indicates acute cholecystitis. We were able to dissect out the cystic duct circumferentially, and it was visualized to enter the gallbladder directly. The cystic artery was visualized to its right. A clip was then placed on the gallbladder/cystic duct junction, and a partial transection of the cystic duct was made. Intraoperative cholangiogram demonstrated normal proximal and distal biliary anatomy without any filling defects, and the contrast drained into the duodenum. The cholangiocatheter was then removed from the patient. Two additional clips were then placed on the proximal cystic duct and then the duct was then transected. The cystic artery was similarly clipped and divided. Electrocautery was then used to detach the gallbladder. The specimen was then placed into the EndoCatch bag and removed from the patient. Irrigation of the right upper quadrant was carried out and all the fluid was aspirated. Inspection of the clips showed that they were intact, and there were no signs of arterial bleeding at the end of the case. Hemostasis of the gallbladder fossa was achieved using cautery. Next, we turned our attention to the subxiphoid port. The fascial defect was reapproximated using 0 Vicryl suture using the Endo Close device. Next, CO2 was allowed to escape and all the trocars were then removed from the patient. Skin edges were reapproximated using absorbable sutures. Steri-Strips and sterile dressing was then placed over each wound. By the end of the procedure, needle counts and sponge counts were correct. The patient was then extubated and taken to the recovery room in stable satisfactory condition.
--- NOTE | 2016-08-22 17:04 | PCM.ANEP2 ---
Post Anesthesia Evaluation ASA/CMS Post Anesthesia VS in Patient's Normal Range?: Yes Resp Stable; Airway Patent?: Yes CV Function & Hydration Stable: Yes Mental Status Recovered?: Yes Pain control Satisfactory?: Yes N/V Control Satisfactory?: Yes Taqueria Patel MD Aug 22, 2016 17:04
--- NOTE | 2016-08-22 17:04 | PCM.ANEP1 ---
Post Anesthesia Phase 1 PACU Phase 1 Assessment Vital Signs Vital Signs Date Time Temp Pulse Resp B/P Pulse Ox O2 Delivery O2 Flow Rate FiO2 08/22/16 16:56 36.6 89 19 127/82 96 Room Air 08/22/16 16:40 36.7 92 15 139/73 94 Room Air 08/22/16 16:34 90 15 139/76 94 Room Air 08/22/16 16:29 86 24 121/74 95 Room Air 08/22/16 16:20 88 24 130/71 99 Simple Mask 8 08/22/16 16:14 36.6 90 21 129/74 99 Simple Mask 8 08/22/16 12:41 36.9 75 18 112/74 98 Room Air 08/22/16 09:08 37.0 74 18 103/66 97 Anesthetic Administered: GA Level of Alertness: Awake, talking BHARDWAJ's with Equal Strength: Yes Pain: Yes Pain Scale Score: 6 Nausea or Vomiting: No Oxygen Delivery: Simple Mask Lungs: Clear to Auscultation, Normal Air Movement Dermatome Level: Full Sensation Taqueria Patel MD Aug 22, 2016 17:04
--- NOTE | 2016-08-22 20:29 | NUR ---
OR Pt left for OR for lap cholecystectomy at 1430, returned to [facility] at 1645, mild pain on arrival, no nausea. able to move from gurney to bed without assistance. Pain became severe after getting to bed Toradol and 0.5ml Dilaudid administered, pain down to 1-2/10
[2016-08-22] MEDS: HYDROcodone-APAP 5-325 mg Tablet PO PRN (21:31)
--- NOTE | 2016-08-22 23:22 | PCM.PNMED ---
Subjective Date of Service Aug 22, 2016 Subjective Was seen prior to surgery and complained of right upper quadrant and right flank pain Exam Vital Signs Vital Sign - Last Date Time Temp Pulse Resp B/P Pulse Ox O2 Delivery O2 Flow Rate FiO2 08/22/16 19:55 36.4 90 18 136/79 95 Room Air 08/22/16 16:20 8 Intake and Output 08/21/16 08/21/16 08/22/16 Cumulative From/Thru 15:00 23:00 07:00 08/21/16 23:34 - 08/22/16 06:12 Output Total 300 ml 300 ml Balance -300 ml -300 ml Output Urine Total 300 ml 300 ml Exam General: Patient is in no apparent distress at present time after given IV Toradol HEENT: Head is atraumatic normocephalic. Eyes: Pupils are equally round and reactive to light and accommodation. Extraocular muscles are intact. Sclera are white anicteric. Subconjunctival mucosa is pink. Ears and nose are unremarkable. Oropharynx: There is no mucosal lesions, there is no thrush, there is no pharyngitis. Neck: Is supple, there are no nodes, or masses, or tenderness. Chest: Is clear to auscultation and percussion. There are no rales, rhonchi, wheezes or rubs. Heart: Rate, rhythm is regular. There is no murmur, rub or gallop. Abdomen: Good bowel sounds are present. Abdomen is soft, nontender, no organomegaly or masses were appreciated. Extremities: Are symmetrical and well perfused. There is no edema, there is no cellulitis, no rash. Neurologic: There are no focal neurological deficits. Cranial nerves II through XII are intact. There are no sensory or motor deficits. Psychiatric: Patients mood is calm and shows no sign of agitation. Genital: Deferred Rectal: Deferred Lab and Diagnostics Result Diagram: 08/21/167 08/21/162346 Microbiology Blood and urine cultures are pending X-Rays, CTs and MRIs CT Abd / Pelvis Interpretation CONCLUSION: Mild uncomplicated diverticulitis could be present as described above. Fibroid uterus suggested an adnexal cyst/cysts as described, ultrasound could further evaluate. Cholelithiasis is noted. Ultrasound could further evaluate. Transmitted to ED by Jerome Boyce D.O. at 08/22/2016 - 3:07:10 AM PST Assessment & Plan Maria Del Rosario Kemp is a 36 year old female with no known medical problems who presents to [facility] emergency department with right-sided abdominal pain 1. Acute right sided Abdominal pain. Present on admission Differential diagnosis includes Cholelithiasis, Cholecystitis, Appendicitis, Budd Chiari syndrome, Pyelonephritis, Intestinal ischemia. CT scan has limited the diagnosis to Diverticulitis (which is rare for her age) and Cholelithiasis. Pyelonephritis is also a possible diagnosis based on flank pain with Urinary tract infection. Liver function test completely normal. Lipase is also normal with normal pancreas on imaging, basically rules out acute pancreatitis - We will continue empiric antibiotics with Zosyn IV - Blood cultures x 2, Urine culture - nothing by mouth with IV fluids running - ultrasound ordered, consider HIDA scan as next step - Surgical consult was obtained with Dr. Danie Burrell for acute cholecystitis and he took the patient to surgery today for a laparoscopic cholecystectomy and intraoperative cholangiogram. The patient was found to have acute cholecystitis and the intraoperative cholangiogram was normal.. 2. Leukocytosis. Present on admission Not meeting SIRS criteria but likely represents a infectious process. - monitor with repeat labs 3. Obesity BMI 39.5 will discuss weight lost and lifestyle modifications with dieting and exercise 4. Polycystic Ovarian syndrome - holding Metformin for now, due to recent contrast exposure - Acetaminophen as needed for mild pain/fever/headache - Bowel regimen as needed -Antiemetic as needed Discussed with patient's mother at bedside Disposition: Patient likely to be discharged in the next 24-48 hours. . Pain Evaluation: Adequate Pain Control VTE Mechanical Devices: Intermittant Pneumatic CD Resuscitation Status: CPR: Attempt Resuscitation Garrison Turcios MD Aug 22, 2016 23:21
[2016-08-23 00:29] VITALS: BP 129/86; PULSE 110; RESP 20; O2SAT 95
--- NOTE | 2016-08-23 03:35 | NUR ---
Pain Pt.med. with vicoden at 2130 and eff. for pain control.Abd. soft with BT and passing some flatus.Violetta. fluids w/o c/o nausea.BA dressings CDI.Moving well and up with SBA,gait steady.Sleeping intermittently and resting comfortably at this time.Will cont. to monitor.
[2016-08-23 04:53] VITALS: BP 117/68; PULSE 87; RESP 20; O2SAT 96
[2016-08-23 06:25] LABS: BASOPHILS % (AUTO) 0.1 % (0-3); EOSINOPHILS % (AUTO) 0 % (0-5); MONOCYTES % (AUTO) 5.6 % (4-12); Mean Corpuscular Hemoglobin 25.4 pg (27.0-35.0); Mean Corpuscular Volume 82.7 fL (81-100); NEUTROPHILS % (AUTO) 80.2 % (40-74); Platelet Count 263 bil/L (150-400)
[2016-08-23 06:42] LABS: Magnesium 1.9 mg/dL (1.6-2.6)
[2016-08-23] MEDS: Piperacillin-Tazo 3.375 Gm Inj 3.375 GM in Dextrose 5% Minibag Plus 50 ML IV SCH (08:11)
[2016-08-23] MEDS: HYDROcodone-APAP 5-325 mg Tablet PO PRN (08:13)
--- NOTE | 2016-08-23 08:28 | PCM.PNSURG ---
Subjective Visit Information: Reason for Visit Diverticulitis Gallstones Abdominal Pain Surgery/Surgery Date Post-Op Day # Date of Admission: Aug 22, 2016 at 04:30 Hospital Day # Subjective: feeling better, no acute events overnight, breakfast hasn't come yet, RUQ pain is gone Objective Objective Awake in bed Abd: obese, dressings x4 intact, soft Vital Sign- Last 8 Hours Date Time Temp Pulse Resp B/P Pulse Ox O2 Delivery O2 Flow Rate FiO2 08/23/16 04:53 36.6 87 20 117/68 96 Room Air 08/23/16 00:29 36.6 110 20 129/86 95 Room Air Intake and Output- Last 8 Hour 08/23/16 Cumulative From/Thru 07:00 08/21/16 23:34 - 08/23/16 06:00 Intake Total 1786 ml 2786 ml Output Total 300 ml 600 ml Balance 1486 ml 2186 ml Intake Oral 700 ml 800 ml IV Total 1086 ml 1986 ml Output Urine Total 300 ml 600 ml # Voids 2 6 # Bowel Movements 0 0 Result Diagram: 08/23/16 0535 08/23/16 0535 Assessment & Plan Impression POD #1 s/p lap joshua for acute cholecystitis Problems: Plan OK to d/c home from surgical standpoint Rx per hospitalist team F/U in [facility] in 2-3 weeks for postop check. Resuscitation Status: CPR: Attempt Resuscitation Danie Burrell MD Aug 23, 2016 08:28
[2016-08-23] MEDS: 0.9% Sodium Chloride 1,000 ML IV SCH (09:36)
[2016-08-23 10:29] VITALS: BP 127/77; PULSE 82; RESP 18; O2SAT 98
--- NOTE | 2016-08-23 11:46 | NUR ---
Case Management: SUAREZ given and explained to pt's mom Yvette. Lisa COOK, RN
[2016-08-23 13:05] VITALS: BP 143/79; PULSE 77; RESP 18; O2SAT 96
--- NOTE | 2016-08-23 13:38 | PCM.DIMED ---
Discharge Instructions Date of Service Aug 23, 2016 Dates of Hospitalization Aug 22, 2016 at 04:30 Discharge Diagnosis Discharge Diagnosis Acute Cholecystitis Diet Heart Healthy Activity Other (Patient may resume work next week on light duty) Call your provider Fever or Chills, Shortness of breath, Bleeding, Chest pain, Vomitting, Excessive diarrhea, Weakness (unilateral), Other Patient Instructions Follow-up Provider: Beverly Waters Follow-up with PCP in: 1 week Provider: Danie Burrell MD Follow-up in: 2 weeks (For Post Op Care) Garrison Turcios MD Aug 23, 2016 13:38
--- NOTE | 2016-08-23 13:43 | NUR ---
Social Work Initial Assessment and Discharge: SW met with patient at bedside to discuss discharge plan. Patient is a 36 year old female admitted on 08/22/16 for diverticulitis, gallstone and abdominal pain. Patient payer as Medicare and [employer]. Patient has no jail disability nor VA benefits. Patient PCP as MD Waters. patient resides in [place] with parents mother Anisa, . Patient pharmacy of choice as [facility]. Patient has no HHC, SNF, DME or AD history. Patient states being independent with needs and states having no identified discharge needs at this time. Per report in rounds, patient to to discharge home with oral abx. No other anticipated discharge needs identified at this time. SW to follow. PLAN: Home with parents, pending clinical course.No anticipated discharge needs identified at this time. SW to follow. Lang GUTHRIE Addendum: 08/23/16 at 1353 by MARGARET ORDAZ Amended: Links added.
--- NOTE | 2016-08-23 14:15 | NUR ---
Discharge Pt discharged to home with family via private vehicle at 1415 hrs. PIV removed intact. VSS. No c/o pain. All personal possessions sent with pt. Discharge and follow up instructions given to pt and she expressed understanding.
--- NOTE | 2016-08-24 00:48 | PCM.DC.MED ---
Discharge Summary Date of Service Aug 23, 2016 Dates of Hospitalization Date of Hospital Admission Aug 22, 2016 at 04:30 Date of Discharge: Aug 23, 2016 Providers: Admitting Physician: Gary Heurtas MD Primary Care Physician: Beverly Waters Attending Physician: Gary Huertas MD Diagnosis at Time of Discharge Diagnosis at Time of Discharge Acute Cholecystitis Procedures XRay, CTs & MRIs CT Abd / Pelvis Interpretation CONCLUSION: Mild uncomplicated diverticulitis could be present as described above. Fibroid uterus suggested an adnexal cyst/cysts as described, ultrasound could further evaluate. Cholelithiasis is noted. Ultrasound could further evaluate. Transmitted to ED by Jerome Boyce D.O. at 08/22/2016 - 3:07:10 AM PST Brief History Maria Del Rosario Kemp is a 36 year old female with no known medical problems who presents to [facility] emergency department with right-sided abdominal pain at 2100 this evening. She also reports right-sided back pain, severe, sharp pain 9/10 intensity, radiation from the right side to mid epigastric area. Associated symptoms includes chills, nausea, and multiple vomiting (no hematemesis). The patient denies diarrhea or hematuria. The patient has had two previous episodes of similar pain, although less severe. Patient had a negative HIDA scan on 07/03/16. Family reported the patient had similar mild symptoms around this time but nothing was found to be the cause. No prior abdominal surgery and no history of obstructions Case discussed with Dr Riley, plan to admit and initiate antibiotics. He was therefore admitted to the hospital service. Hospital Course Maria Del Rosario Kemp is a 36 year old female with no known medical problems who presents to [facility] emergency department with right-sided abdominal pain 1. Acute right sided Abdominal pain. Present on admission Differential diagnosis includes Cholelithiasis, Cholecystitis, Appendicitis, Budd Chiari syndrome, Pyelonephritis, Intestinal ischemia. CT scan has limited the diagnosis to Diverticulitis (which is rare for her age) and Cholelithiasis. Pyelonephritis is also a possible diagnosis based on flank pain with Urinary tract infection. Liver function test completely normal. Lipase is also normal with normal pancreas on imaging, basically rules out acute pancreatitis - We will continue empiric antibiotics with Zosyn IV - Blood cultures x 2, Urine culture - nothing by mouth with IV fluids running - ultrasound ordered, consider HIDA scan as next step - Surgical consult was obtained with Dr. Danie Burrell for acute cholecystitis and he took the patient to surgery yesterday for a laparoscopic cholecystectomy and intraoperative cholangiogram. The patient was found to have acute cholecystitis and the intraoperative cholangiogram was normal.. - She tolerated the procedure well and is dressed and ready to go home when I enter the room 2. Leukocytosis. Present on admission Not meeting SIRS criteria but likely represents a infectious process. - monitor with repeat labs 3. Obesity BMI 39.5 will discuss weight lost and lifestyle modifications with dieting and exercise 4. Polycystic Ovarian syndrome - holding Metformin for now, due to recent contrast exposure - Acetaminophen as needed for mild pain/fever/headache - Bowel regimen as needed -Antiemetic as needed Discussed with patient's mother at bedside Disposition: Patient will be discharged home today. . Exam Vital Signs (Last) Date Time Temp Pulse Resp B/P Pulse Ox O2 Delivery O2 Flow Rate FiO2 08/23/16 13:05 37.0 77 18 143/79 96 Room Air 08/22/16 16:20 8 Exam General: Patient is in no apparent distress at present time after given IV Toradol HEENT: Head is atraumatic normocephalic. Eyes: Pupils are equally round and reactive to light and accommodation. Extraocular muscles are intact. Sclera are white anicteric. Subconjunctival mucosa is pink. Ears and nose are unremarkable. Oropharynx: There is no mucosal lesions, there is no thrush, there is no pharyngitis. Neck: Is supple, there are no nodes, or masses, or tenderness. Chest: Is clear to auscultation and percussion. There are no rales, rhonchi, wheezes or rubs. Heart: Rate, rhythm is regular. There is no murmur, rub or gallop. Abdomen: Good bowel sounds are present. Abdomen is soft, with some postop tenderness. Bandages over the laparoscopy sites are clean dry and intact Extremities: Are symmetrical and well perfused. There is no edema, there is no cellulitis, no rash. Neurologic: There are no focal neurological deficits. Cranial nerves II through XII are intact. There are no sensory or motor deficits. Psychiatric: Patients mood is calm and shows no sign of agitation. Genital: Deferred Rectal: Deferred Test 08/21/16 23:47 08/22/16 02:30 08/22/16 11:54 08/23/16 05:35 Lipase 31U/L (13-60) HCG Beta Subunit < 0.500mIU/mL Hold Elam Top Tube Received (Received) Urine Color Yellow (YELLOW) Urine Appearance Hazy (CLEAR,HAZY) Urine pH 7.0 (5.0-8.0) Urine Specific [place] 1.020 (1.003-1.035) Urine Protein Negativemg/dL (NEG,TRACE) Urine Glucose (UA) Negativemg/dL (NEGATIVE) Urine Ketones Negativemg/dL (NEGATIVE) Urine Occult Blood Moderate (NEGATIVE) Urine Nitrite Negative (NEGATIVE) Urine Bilirubin Negative (NEGATIVE) Urine Urobilinogen Normalmg/dL (NORMAL) Urine Leukocyte Esterase Trace (NEGATIVE) Urine RBC 3-10/hpf (0-2) Urine WBC 11-50/hpf (0-5) Urine Epithelial Cells Moderate/hpf (NONE-MOD) Urine Crystals None seen (NONE SEEN) Urine Bacteria Moderate/hpf (NONE-FEW) Urine Hyaline Casts None/lpf (NONE) Urine Granular Casts None seen (NONE SEEN) Urine Waxy Casts None seen (NONE SEEN) Urine Red Blood Cell Casts None seen (NONE SEEN) Urine White Blood Cell Casts None seen (NONE SEEN) Urine Mucus Present (None Seen) Urine Trichomonas None seen (NONE SEEN) Urine Yeast None (NONE SEEN) Urinalysis Comment Transitional epi Urine Culture Reflexed Indicated Prothrombin Time 9.6sec (8.1-12.5) Prothromb Time International Ratio 0.90ratio White Blood Count 9.9th/mm3 (3.8-10.1) Red Blood Count 4.21mil/mm3 (3.90-5.20) Hemoglobin 10.7g/dL (12.0-15.6) Hematocrit 34.8% (35.0-46.0) Mean Corpuscular Volume 82.7fL (81-100) Mean Corpuscular Hemoglobin 25.4pg (27.0-35.0) Mean Corpuscular Hemoglobin Concent 30.7% (32.0-37.0) Red Cell Distribution Width 14.6% (12.3-15.4) Platelet Count 263bil/L (150-400) Neutrophils (%) (Auto) 80.2% (40-74) Lymphocytes (%) (Auto) 14.0% (14-46) Monocytes (%) (Auto) 5.6% (4-12) Eosinophils (%) (Auto) 0% (0-5) Basophils (%) (Auto) 0.1% (0-3) Sodium Level 138mEq/L (134-144) Potassium Level 4.1mEq/L (3.5-5.2) Chloride Level 103mEq/L (97-108) Carbon Dioxide Level 22mmol/L (18-29) Blood Urea Nitrogen 6mg/dL (6-20) Creatinine 0.77mg/dL (0.57-1.00) Estimat Glomerular Filtration Rate 120mL/min (>59) Glucose Level 106mg/dL (60-99) Calcium Level 7.9mg/dL (8.5-10.1) Magnesium Level 1.9mg/dL (1.6-2.6) Total Bilirubin 0.6mg/dL (0.0-1.2) Aspartate Amino Transf (AST/SGOT) 38U/L (0-50) Alanine Aminotransferase (ALT/SGPT) 21U/L (0-32) Alkaline Phosphatase 66U/L (25-150) Total Protein 6.0g/dL (6.4-8.4) Albumin 3.4g/dL (3.4-5.0) Microbiology Results Blood and urine cultures are pending Discharge Medications Discharge Medications Dextroamphetamine/Amphetamine ER (Adderall XR) 20 Mg Capsule 20 MG PO DAILY ( Reported) Fluoxetine (Fluoxetine) 40 Mg Capsule 40 MG PO DAILY (Reported) Metformin (Metformin) 500 Mg Tablet 500 MG PO DAILY (Reported) Miscellaneous Medications ([ control]) (Reported) Followup Plan Disposition: Is being discharged home with her mother. Discharge Diet: Heart Healthy Discharge Activity: Other (Patient may resume work next week on light duty) Follow-up Provider: Beverly Waters Follow-up with PCP in: 1 week Provider: Danie Burrell MD Follow-up in: 2 weeks (For Post Op Care) Time spent Time spent on discharging this patient was greater than 35 minutes, over half of which was involved in counseling and coordination of care. Garrison Turcios MD Aug 24, 2016 00:48
--- NOTE | 2016-08-24 15:19 | PATH ---
SURGICAL PATHOLOGY Attending Physician:Danie Burrell M.D. CASE STATUS: Signed Out PATIENT NAME: ABHISHEK ARREDONDO PID: [id number] : 1980 DATE COLLECTED:08/22/2016 22:42 SPECIMEN: Gallbladder CLINICAL HISTORY: ABDOMINAL PAIN, CHOLECYSTITIS 1). GALLBLADDER AND CONTENTS FINAL DIAGNOSIS: Gallbladder and Contents: Cholelithiasis and acute cholecystitis. No evidence of malignancy. ICD10 K80.6 GROSS DESCRIPTION: The specimen is received in one formalin filled container labeled with the patient's name, sublabeled "gallbladder and contents" and consists of an opened 0.5 x 4.0 x 1.5 CM gallbladder. The serosa is smooth. The wall is 0.2-0.4 CM in thickness. The mucosa is a dark pink prieto to osuna-grande in color. The lumen contains a light green mucoid material and approximately 20 yellow cobblestoned calculi which range in size from 0.2-0.5 CM in greatest dimension. 5 sales representative printing paper sections are submitted in one cassette. 08/22/2016 DAC MICRO DESCRIPTION: Please see diagnosis. ICD-9 CODES: CPT CODES: 1: 52966 Electronically Signed Out Adrianne Rodrigues MD [facility] Pathology [facility] [address], [place] [address] Technical component performed at [facility], [facility] [address], [place], [address]
== END 2016-08-23 14:19 | disposition home or self-care (01) ==
LOC: SED 23:30 → OSC 08-22 04:30 → INTOOBSV 08-22 04:30
PROVIDERS: ADMIT Hospitalist; ATTEND Hospitalist
DX: K80.00 Calculus of gallbladder with acute cholecystitis without obstruction (principal); D72.829 Elevated white blood cell count, unspecified; E66.01 Morbid (severe) obesity due to excess calories; Z68.39 Body mass index [BMI] 39.0-39.9, adult; E28.2 Polycystic ovarian syndrome; F84.5 Asperger's syndrome; Z79.84 Long term (current) use of oral hypoglycemic drugs
CPT/HCPCS: 36415; 47563; 74177; 74300; 76705; 80053; 81000; 81025; 83690; 83735; 84702; 85025; 85610; 87040; 87086; 87088; 88304; 93005; 94640; 96365; 96366; 96375; 96376; 99285; G0378; J0330; J1100; J1170; J2405; J2543; J2710; J2765; J7030; J7120; Q9967

== ENCOUNTER 2016-08-24 18:37 | Emergency (ER) | payer MEDICARE, MEDICAID ==
[~2016-08-24] VITALS: Ht 175.3 cm; Wt 129.6 kg
[~2016-08-24 18:37] MED LIST: AMPH20CA5 PO; FLUO40CA PO; METF500T4 PO; birth control
[2016-08-24 18:44] VITALS: BP 132/85; PULSE 80; RESP 20; O2SAT 99
--- NOTE | 2016-08-24 19:31 | ED.REPORT ---
HPI-Extremity Problem Upper Date of Service Aug 24, 2016 ED Provider: Alfredo Wilkes MD A 36 year old female with a history of recent cholecystectomy procedure is referred to the ED from Urgent Care complaining of left arm pain. The pt was discharged from the hospital yesterday following her cholecystectomy, and noticed a "swollen red streak" where her IV had been placed during the surgery. This was accompanied by swelling of her left hand. The pt noticed the redness when she was on her way to Urgent Care, and reports tenderness when she moves or touches the arm. She denies fever or chills. The pt believes that her symptoms may be due to a small clot. Nursing Notes Stated Complaint: ARM PAIN POST SURGERY Chief Complaint: Extremity Trauma Nursing Notes Reviewed: Yes Allergies: Coded Allergies: No Known Allergies (Unverified , 08/21/16) Scheduled Dextroamphetamine/Amphetamine ER (Adderall XR) 20 Mg Capsule 20 MG PO DAILY Fluoxetine (Fluoxetine) 40 Mg Capsule 40 MG PO DAILY Metformin (Metformin) 500 Mg Tablet 500 MG PO DAILY Miscellaneous Medications ([ control]) General Time Seen by MD: 19:30 Chief Complaint Arm injury left Hx Obtained From: Patient Arrived By: Walk-in Onset Occurred: 1 day ago Symptom Duration: Since onset Recent Healthcare: Recent doctor visit, Recent hospitalization Similar Sx Previous: No Past Medical History Past Medical History None reported Past Surgical History Reports: Cholecystectomy Smoking History Unknown if Ever Smoker Social History Other Social History: Good social support Ambulatory Status Independent Review of Systems Constitutional: Denies: Chills, Fever Musculoskeletal: Reports: Extremity pain, Denies: Back pain, Neck pain Skin: Denies Rash Complete sys rev & neg: except as marked. Respiratory: Denies: Non-productive cough Cardiovascular: Denies: Chest pain Physical Exam Initial Vital Signs Vital Signs (First) Date Time Temp Pulse Resp B/P Pulse Ox O2 Delivery O2 Flow Rate FiO2 08/24/16 18:44 36.6 80 20 132/85 99 Room Air Initial VS: Reviewed General/Constitutional: Awake, Alert Neck: Atraumatic, Supple, Full range of motion Respiratory / Chest: Atraumatic, Breath sounds NL, Breath sounds = bilat, No respiratory distress Cardiovascular: Heart rate NL, Regular rhythm, Heart sounds NL Upper Extremity / MS: Full range of motion IV site in the left antecubital fossa with tender streak running up Wrist / Hand: Atraumatic, Full range of motion swelling of left hand Skin: Warm, Dry Neurologic: Oriented X3, Speech NL, No motor deficits, No sensory deficits Head / Eyes: Atraumatic, Normocephalic, PERRL, EOMI ENT: Atraumatic, Airway patent, Mucous membranes moist Abdomen: Atraumatic, Soft, Non-tender Back: Atraumatic, Full range of motion Lymphatic: No axillary adenopathy Lower Extremity / Pelvis / MS: Atraumatic, Full range of motion Psychiatric: Affect NL, Mood NL Interpretation & Diagnostics Interpretation & Diagnostics: Venous Duplex US: extensive cephalic thrombosis no DVT Re-Eval/Medical Decision Source of Hx: Old records Re-Evaluation/Progress #1: Time of Eval: 19:58 Re-Evaluation/Progress Note: Pt rechecked, who is comfortable. Treatment plan and medication options are discussed. Re-Evaluation/Progress #2: Time of Eval: 21:00 Patient Status: Condition improved Re-Evaluation/Progress Note: Pt rechecked, who is resting comfortably. She is informed of her US results, diagnosis, and the plan for discharge. The pt understands and agrees with the plan. All questions are addressed at this time. Counseled Regarding: Diagnosis, Lab results, Need for follow-up, When/why to return to ED Discharge & Departure Impression: Primary Impression: Superficial phlebitis Disposition: Home Discharge Condition All VS Reviewed: Yes Condition: Stable Additional Instructions: Emergency Department evaluation included, examination, ultrasound. We will start antibiotics due to concern about possible infection. Ultrasound did show superficial clot but no deep venous clot, therefore anticoagulation is not required. Elevate and apply warm packs to left upper extremity. Take cephalexin and trimethoprim sulfa as prescribed. Aleve 2 OTC tablets twice daily. Follow up with primary care tomorrow as planned. Return to emergency department for fevers shaking chills rapid increase in redness left arm. Referrals: Beverly Waters (PCP) Yamileibangelo Attestation Portions of this note were transcribed by Wolf Lennon I, Dr. Wilkes personally performed the history, physical exam and medical decision-making; I reviewed and confirmed the accuracy of the information in the transcribed note. Signed by: Ivet Richmond, 08/24/16 and 21:25. copies to: Beverly Waters Donald L MD Aug 24, 2016 19:31 WOLF LENNON Aug 24, 2016 20:05
[2016-08-24] MEDS ORDERED: Trimethoprim-Sulfa 160 mg-800 mg Tablet PO ONE (20:00)
[2016-08-24] MEDS ORDERED: _Trimethoprim-Sulfa 160/800 mg Tablet PO SCH (20:30)
[2016-08-24] MEDS ORDERED: _Cephalexin 500 mg Capsule PO SCH (20:30)
[2016-08-24 21:27] VITALS: PULSE 88; RESP 24; O2SAT 99
--- NOTE | 2016-08-24 21:30 | DRSVH ---
PROCEDURE: US VENOUS ARM DUPLEX UNILATERAL, LEFT INDICATIONS: ? L arm DVT TECHNIQUE: Real-time imaging, as well as color and pulse Doppler interrogation, was performed of the left upper extremity deep veins from the inferior neck to the antecubital fossa. COMPARISON: None. FINDINGS: The internal jugular vein, visualized portions of the subclavian vein, axillary, and brach ial veins are free of intraluminal thrombus. Where physically possible, the veins are normally compr essible. Color and pulse Doppler demonstrate normal intraluminal flow, with expected phasicity and p ulsatility. Additional scanning of the cephalic and basilic veins of the superficial system demonstr ate occlusive, extensive clot within the cephalic vein from the mid upper arm to the distal forearm. IMPRESSION: Diffuse superficial thrombus within the cephalic vein from the mid upper arm to the distal forearm. No deep venous thrombosis. Dictated by: Marty Garza M.D. on 08/24/2016 at 21:25 Approved by: Marty Garza M.D. on 08/24/2016 at 21:30
== END 2016-08-24 21:29 | disposition home or self-care (01) ==
LOC: SED 18:37
DX: I80.8 Phlebitis and thrombophlebitis of other sites (principal); Z90.49 Acquired absence of other specified parts of digestive tract; Z79.84 Long term (current) use of oral hypoglycemic drugs
CPT/HCPCS: 93971; 99284; G0463

== ENCOUNTER 2016-08-29 14:01 | Emergency (ER) | payer MEDICARE, MEDICAID ==
[~2016-08-29] VITALS: Ht 175.3 cm; Wt 127.5 kg
[2016-08-29 14:14] VITALS: BP 138/90; PULSE 86; RESP 18; O2SAT 100
[2016-08-29 15:56] LABS: BASOPHILS % (AUTO) 0.3 % (0-3); EOSINOPHILS % (AUTO) 2.4 % (0-5); MONOCYTES % (AUTO) 4.2 % (4-12); Mean Corpuscular Volume 81.8 fL (81-100); NEUTROPHILS % (AUTO) 76.5 % (40-74); Platelet Count 281 bil/L (150-400)
[2016-08-29 16:25] LABS: Magnesium 2.2 mg/dL (1.6-2.6)
--- NOTE | 2016-08-29 16:53 | ED.REPORT ---
HPI-Abd Pain F Under 40 Date of Service Aug 29, 2016 ED Provider: Donnell Marcelino PA-C Marcelino is a otherwise healthy 36-year-old female who presents with a chief complaint of right upper quadrant pain. She states that she was woken from sleep this morning approximately 01:00 by crampy abdominal pain in the right upper quadrant. She had another episode later in the day prior to presentation. Patient is 7 days status post uncomplicated cholecystectomy. She states that the pain is similar to the pain she had prior to her cholecystectomy. She reports a recent blood clot in her upper left arm. Denies vomiting, diarrhea, chest pain, shortness of breath, wheezing, cough, fever, chills, malaise, urinary symptoms, . Nursing Notes Stated Complaint: STOMACH PAIN Chief Complaint: Female Abdominal Pain Nursing Notes Reviewed: Yes Allergies: Coded Allergies: No Known Allergies (Unverified , 08/21/16) Scheduled Dextroamphetamine/Amphetamine ER (Adderall XR) 20 Mg Capsule 20 MG PO DAILY Fluoxetine (Fluoxetine) 40 Mg Capsule 40 MG PO DAILY Metformin (Metformin) 500 Mg Tablet 500 MG PO DAILY Miscellaneous Medications ([ control]) General Time Seen by MD: 16:39 Chief Complaint Abdominal pain Past Medical History Past Medical History None reported Past Surgical History Reports: Cholecystectomy Smoking History Unknown if Ever Smoker Social History Other Social History: Good social support Ambulatory Status Independent Review of Systems Review of Systems Note: Negative unless stated otherwise in history of present illness Physical Exam General: Well appearing, well developed, obese, no acute distress. Head: Atraumatic, normocephalic. Eyes: No scleral icterus or injection. No discharge. Vision grossly intact. ENT: Voice clear, hearing grossly intact. Respiratory: Regular rate and rhythm. Breath sounds present, clear to auscultation and equal bilaterally. Cardiovascular: Regular rate and rhythm, without murmur, gallop or rub. No pedal edema. Gastrointestinal: Obese abdomen, tender right upper quadrant and epigastric without guarding or rebound. Bowel sounds normoactive. Skin: Warm and dry. Laparoscopic cholecystectomy scars appear to be healing well, with just a small amount of bruising, no redness, heat, swelling, discharge. Neurological: Grossly nonfocal. Psychological: Alert and oriented. Speech appropriate, linear and logical. Behavior appropriate. Initial Vital Signs Vital Signs (First) Date Time Temp Pulse Resp B/P Pulse Ox O2 Delivery O2 Flow Rate FiO2 08/29/16 14:14 36.2 86 18 138/90 100 Room Air Initial VS: Reviewed, Vital signs normal Interpretation & Diagnostics Lab Results Interpretation Result Diagram: 08/29/16 1547 08/29/16 1547 Test 08/29/16 15:47 08/29/16 18:15 White Blood Count 10.1th/mm3 (3.8-10.1) Red Blood Count 4.66mil/mm3 (3.90-5.20) Hemoglobin 12.1g/dL (12.0-15.6) Hematocrit 38.1% (35.0-46.0) Mean Corpuscular Volume 81.8fL (81-100) Mean Corpuscular Hemoglobin 26.0pg (27.0-35.0) Mean Corpuscular Hemoglobin Concent 31.8% (32.0-37.0) Red Cell Distribution Width 15.2% (12.3-15.4) Platelet Count 281bil/L (150-400) Neutrophils (%) (Auto) 76.5% (40-74) Lymphocytes (%) (Auto) 16.4% (14-46) Monocytes (%) (Auto) 4.2% (4-12) Eosinophils (%) (Auto) 2.4% (0-5) Basophils (%) (Auto) 0.3% (0-3) Sodium Level 136mEq/L (134-144) Potassium Level 4.4mEq/L (3.5-5.2) Chloride Level 99mEq/L (97-108) Carbon Dioxide Level 23mmol/L (18-29) Blood Urea Nitrogen 10mg/dL (6-20) Creatinine 0.95mg/dL (0.57-1.00) Estimat Glomerular Filtration Rate 94mL/min (>59) Glucose Level 110mg/dL (60-99) Calcium Level 8.9mg/dL (8.5-10.1) Magnesium Level 2.2mg/dL (1.6-2.6) Total Bilirubin 0.4mg/dL (0.0-1.2) Aspartate Amino Transf (AST/SGOT) 17U/L (0-50) Alanine Aminotransferase (ALT/SGPT) 16U/L (0-32) Alkaline Phosphatase 113U/L (25-150) Total Protein 7.2g/dL (6.4-8.4) Albumin 3.8g/dL (3.4-5.0) Lipase 21U/L (13-60) Hold Elam Top Tube Received (Received) Hold Urine Received (Received) CT Abd / Pelvis Interpretation PROCEDURE: CT ABDOMEN AND PELVIS WITH CONTRAST ([id number]) INDICATIONS: right upper quadrant pain IMPRESSION: 1. Cholecystectomy. No evidence for postoperative abscess. 2. A 1.2 cm indeterminate hypodensity in left hepatic lobe. 3. Small amount free fluid in pelvis. 4. A 3.1 cm right adnexal cyst. Ultrasound followup suggested. 5. Myomatous uterus. 6. Diverticulosis. No active diverticulitis. Interpretation / Wet Read by: Interpret - Radiologist Re-Eval/Medical Decision Med Decision/Clinical Course 36-year-old female with a history one week ago and prescribed a cholecystectomy presents with intermittent right upper quadrant. Patient declined pain medication, antiemetics. Physical exam reveals right upper quadrant tenderness , but no other findings. Her port sites appear to be healing well, with only small amount of bruising. Vitals and labs are all reassuring. CT scan with contrast reveals several incidental findings but no source of the pain. I discussed the case with , an associate of her surgeon, who reviewed the case with me and sees no reason for further investigation. He states that his office will contact her tomorrow to follow up. I discussed this with the patient who is amenable to discharge. Provided return precautions. Answered all questions to the best of my ability. Consultation : Referral / Consult Name: Mili Benavides MD Call Returned at: 20:11 Note: Does not feel further investigation is warranted at this time. will contact the patient to follow-up Discharge & Departure Primary Impression: Abdominal pain Abdominal location: right upper quadrant Qualified Code: R10.11 - Right upper quadrant pain Disposition: Home Discharge Condition All VS Reviewed: Yes Condition: Stable Patient Instructions: Acute Abdominal Pain (ED) Additional Instructions: Evaluation for abdominal pain the emergency department. CT scan of your abdomen does not explain the pain in the right upper quadrant, but it does reduce concern for serious problems like postoperative abscess, hematoma or diverticulitis. I discussed the case with Dr. Benavides, at Dr. Burrell's office, who feels there is no indication for further investigation at this time. Contact Dr. Burrell's office tomorrow to arrange follow-up if they feel it is necessary. The CT did reveal some incidental findings that he should discuss with her primary care provider including the following: A 1-1/2 cm area of hypodensity in the liver, 3 cm right ovarian cyst, which you know about as well as the fibroids that you are aware of. Return to the emergency department for new or worsening symptoms including increasing pain, repeated vomiting, difficulty breathing. Referrals: Danie Burrell MD EDSupervising Provider for APC: Jesus Pierre MD Attending Statment Attending attestation: I saw this patient in conjunction with Donnlel Marcelino PA-C. I agree with the workup, evaluation, treatment and disposition. Jesus Pierre MD copies to: Beverly Waters; Danie Burrell MD, Seth PA-C Aug 29, 2016 16:52 Jesus Pierre MD Aug 29, 2016 18:05
--- NOTE | 2016-08-29 18:57 | DRSVH ---
PROCEDURE: CT ABDOMEN AND PELVIS WITH CONTRAST ([id number]) INDICATIONS: right upper quadrant pain TECHNIQUE: After the administration of intravenous contrast, 5 mm thick sections acquired from the diaphragms to the symphysis. 5 mm thick coronal and sagittal reformats were performed. For radiation dose reduct ion, the following was used: automated exposure control, adjustment of mA and/or kV according to pat ient size. COMPARISON: [facility], [place], PELVIS SONO TRANSVAGINAL (PN), 02/10/2013, 14:41. Merged with [facility], [place], ABDOMEN LTD, 08/22/2016, 8:03. [facility], CT, CT ABD PELVIS W CON, , 2:41. FINDINGS: Image quality: Excellent. ABDOMEN: Lung bases: Lung bases are clear. Heart size is normal. Solid organs: There is a 1.2 cm hypodensity in medial segment of the left hepatic lobe. Liver and sp shanelle are normal in size and enhancement. Gallbladder is surgically absent. There is mild stranding i n the gallbladder fossa. No fluid collections to suggest postoperative abscess. Biliary system is no n-dilated. Pancreas enhances normally. No adrenal nodules. Kidneys are normal in size and enhancem ent, without hydronephrosis. Peritoneum and bowel: Stomach, small bowel, and colon loops are normal in caliber and wall thickness . There are scattered diverticula in sigmoid colon. No active diverticulitis. No free fluid or air. Nodes and vessels: No retroperitoneal or mesenteric adenopathy. Aorta and inferior vena cava are no rmal in caliber. Miscellaneous: No ventral hernias. PELVIS: Genitourinary: Bladder wall thickness is normal. Myomatous uterus with multiple fibroids. Small sub serosal fibroids are seen with mass effect of the bladder dome. There is a 3.1 cm right adnexal cyst. A small amount of free fluid is present in cul-de-sac. Miscellaneous: No inguinal hernias or adenopathy. Bones: No suspicious bony lesions. No vertebral body compression fractures. IMPRESSION: 1. Cholecystectomy. No evidence for postoperative abscess. 2. A 1.2 cm indeterminate hypodensity in left hepatic lobe. 3. Small amount free fluid in pelvis. 4. A 3.1 cm right adnexal cyst. Ultrasound followup suggested. 5. Myomatous uterus. 6. Diverticulosis. No active diverticulitis. Dictated by: Mandi Ray M.D. on 08/29/2016 at 18:44 Approved by: Mandi Ray M.D. on 08/29/2016 at 18:55
[2016-08-29 20:32] VITALS: BP 134/95; PULSE 90; RESP 16; O2SAT 99
== END 2016-08-29 20:30 | disposition home or self-care (01) ==
LOC: SED 14:01
DX: R10.11 Right upper quadrant pain (principal); Z79.84 Long term (current) use of oral hypoglycemic drugs
CPT/HCPCS: 36415; 74177; 80053; 81025; 83690; 83735; 85025; 99284; Q9967